=== PATIENT | male | born 1935 | race Caucasian/White ===

== ENCOUNTER 2017-12-19 06:13 | Day surgery (SDC) | payer MEDICARE, OTHER ==
[~2017-12-19] VITALS: Ht 172.7 cm; Wt 82.3 kg
[2017-12-19] MEDS ORDERED: AMLO5 (07:05)
[2017-12-19] MEDS ORDERED: ENAL10 (07:06)
[2017-12-19] MEDS ORDERED: LUMIGAN2.5 ML (07:06)
[2017-12-19] MEDS ORDERED: FINA5 (07:06)
[2017-12-19] MEDS ORDERED: ATOR20 (07:06)
[2017-12-19] MEDS ORDERED: DIVA250EC (07:06)
[2017-12-19] MEDS ORDERED: ASPI81CH (07:06)
[2017-12-19] MEDS ORDERED: TAMS.4ER (07:07)
[2017-12-19] MEDS ORDERED: HYDR1TAB94 (07:07)
[2017-12-19] MEDS ORDERED: PARO30 (07:07)
[2017-12-19] MEDS ORDERED: Prevacid Soluta30 MG (07:07)
[2017-12-19] MEDS ORDERED: FISH OIL + D31 EACH (07:08)
== END 2017-12-19 09:51 | disposition home or self-care (01) ==
LOC: ORSCSDS 06:13
PROVIDERS: Orthopaedic Surgery
PROC: 0SBC4ZZ Excision of Right Knee Joint, Percutaneous Endoscopic Approach (ICD-10-PCS; principal; 2017-12-19 07:30)
DX: S83.241A Other tear of medial meniscus, current injury, right knee, initial encounter (principal); S83.281A Other tear of lateral meniscus, current injury, right knee, initial encounter; I10 Essential (primary) hypertension; I25.2 Old myocardial infarction; Z86.73 Personal history of transient ischemic attack (TIA), and cerebral infarction without residual deficits; Z79.899 Other long term (current) drug therapy; Z79.82 Long term (current) use of aspirin
CPT/HCPCS: J0690; J1885; J2250; J2405; J3010; J7120

== ENCOUNTER 2018-08-24 14:41 | Emergency (ER) | payer OTHER, MEDICARE ==
[~2018-08-24] VITALS: Ht 182.9 cm; Wt 79.4 kg
[~2018-08-24 14:41] MED LIST: AMLO5; ASPI81CH; ATOR20; DIVA250EC; ENAL10; FINA5; FISH OIL + D31 EACH; HYDR1TAB94; LUMIGAN2.5 ML; PARO30; Prevacid Soluta30 MG; TAMS.4ER
[2018-08-24 15:06] LABS: BASOPHILS ABSOLUTE AUTO 0.04 K/mm3 (0.00-0.23); BASOPHILS PERCENT AUTO 0 % (0-2); EOSINOPHILS ABSOLUTE AUTO 0.14 K/mm3 (0.00-0.68); EOSINOPHILS PERCENT AUTO 1 % (0-6); Hematocrit 38.2 % (37.0-53.0); Hemoglobin 12.4 g/dL (13.5-17.5); IMMATURE GRAN ABSOLUTE AUTO 0.15 K/mm3 (0.00-0.10); IMMATURE GRAN PERCENT AUTO 1 % (0-1); LYMPHOCYTES PERCENT AUTO 23 % (21-46); MONOCYTES ABSOLUTE AUTO 1.08 K/mm3 (0.16-1.47); MONOCYTES PERCENT AUTO 8 % (4-13); Mean Corpuscular HGB 30.2 pg (26.0-34.0); Mean Corpuscular HGB Conc 32.5 g/dL (31.5-36.5); Mean Corpuscular Volume 93 fL (80-100); Mean Platelet Volume 11.7 fL (9.1-12.4); NEUTROPHILS ABSOLUTE AUTO 8.42 K/mm3 (1.96-9.15); NEUTROPHILS PERCENT AUTO 66 % (41-73); Platelet Count 180 K/mm3 (150-400); RDW Coefficient Variation 12.9 % (11.7-14.2); RDW Standard Deviation 44.1 fL (35.1-46.3); Red Blood Cell Count 4.11 M/mm3 (4.30-5.90); White Blood Cell Count 12.83 K/mm3 (4.00-11.30)
[2018-08-24 15:22] LABS: International Normalized Ratio 0.99; Prothrombin Time Results 10.5 Sec (9.7-11.5)
[2018-08-24 15:29] LABS: Alanine Aminotransfer (ALT/SGP 34 U/L (12-78); Albumin, Blood 3.2 g/dL (3.4-5.0); Alk Phos 72 U/L (50-136); Anion Gap 8 mmol/L (6-16); Aspartate Aminotrans (AST/SGOT 31 U/L (12-37); Bilirubin, Total 0.4 mg/dL (0.1-1.0); Blood Urea Nitrogen 17 mg/dL (8-24); Bun/Creatinine Ratio 19.5 (12.0-20.0); CO2, Blood 26 mmol/L (21-32); Calcium, Blood 8.6 mg/dL (8.5-10.1); Chloride, Blood 108 mmol/L (98-108); Creatinine, Blood 0.87 mg/dL (0.60-1.20); Ethanol (Alcohol), Blood, Med <3 mg/dL; Globulin, Blood 3.1 g/dL (2.2-4.0); Glomerular Filtration Rate >60 (60-); Glucose, Blood 136 mg/dL (70-99); Potassium, Blood 3.4 mmol/L (3.5-5.5); Sodium, Blood 142 mmol/L (136-145); Total Protein, Blood 6.3 g/dL (6.4-8.2)
[2018-08-24 16:11] LABS: PCO2 Arterial 61.4 mmHg (35-45); PO2 Arterial 61.6 mmHg (80-100)
[2018-08-24 16:12] LABS: pH Blood Arterial 7.21 (7.35-7.45)
== END 2018-08-24 16:20 | disposition short-term general hospital (02) ==
LOC: ER 14:41
PROVIDERS: Emergency Medicine
DX: S06.5X9A Traumatic subdural hemorrhage with loss of consciousness of unspecified duration, initial encounter (principal); S06.6X9A Traumatic subarachnoid hemorrhage with loss of consciousness of unspecified duration, initial encounter; J69.0 Pneumonitis due to inhalation of food and vomit; S42.124A Nondisplaced fracture of acromial process, right shoulder, initial encounter for closed fracture; S22.43XA Multiple fractures of ribs, bilateral, initial encounter for closed fracture; S82.101A Unspecified fracture of upper end of right tibia, initial encounter for closed fracture; S89.391A Other physeal fracture of lower end of right fibula, initial encounter for closed fracture; S89.092A Other physeal fracture of upper end of left tibia, initial encounter for closed fracture; S82.145A Nondisplaced bicondylar fracture of left tibia, initial encounter for closed fracture; S89.292A Other physeal fracture of upper end of left fibula, initial encounter for closed fracture; V03.90XA Pedestrian on foot injured in collision with car, pick-up truck or van, unspecified whether traffic or nontraffic accident, initial encounter; Z88.8 Allergy status to other drugs, medicaments and biological substances; Z79.899 Other long term (current) drug therapy; Z79.82 Long term (current) use of aspirin; Z79.891 Long term (current) use of opiate analgesic
CPT/HCPCS: 31500; 31720; 36415; 36600; 51702; 70450; 71045; 71260; 72125; 73030; 73590; 74177; 80053; 82803; 82947; 83690; 85025; 85610; 85730; 86850; 86900; 86901; 93005; 93010; 94002; 99291-25; G0390; G0480; J0330; J1170; J2250; J2405; J2704; J3010; J7030; Q9967